=== PATIENT | female | born 1990 | race Caucasian/White ===

== ENCOUNTER 2016-10-26 15:17 | Inpatient (IN) | payer MEDICAID, OTHER ==
[~2016-10-26] VITALS: Ht 172.7 cm; Wt 88.0 kg
[2016-10-26] MEDS ORDERED: Benzocaine-Menthol Lozenge 2/Pkg PO PRN (23:50)
[2016-10-26] MEDS ORDERED: Magnesium Hydroxide 10 mL Oral Concentration PO PRN (23:50)
[2016-10-27] MEDS: Alum-Mag Hydrox-Simeth 30 mL Suspension PO PRN ×2 (00:54→13:29)
--- NOTE | 2016-10-27 00:57 | NUR ---
Admission Note Pt arrived to facility via ambulance from [facility] at 2230. Pt was detained on 72 hr hold for grave disability. Per ED report pt was seeking vol admission to in-patient psych facility r/t not feeling safe at home but was eventually detained at [facility] r/t paranoia, aggression and bizarre statements and behavior. Upon arrival to unit pt appears to have good hygiene, with appropriate dress. Pt is cooperative in signing all admission forms and nursing assessment. Pt is A&O to self and time but states she thinks she is in at "[facility]" . Pt is disorganized in thought process and speech and is very tangential. Pt stated reason for admission "I need a new start this is a new day and Im not talking about my past". Pt rated anxiety3/10, denied depression and SI and hallucinations but stated" I hear spirits and feel energy because Im very very in tune with my body". Pt statement regarding homicidal thoughts and actions" If Im in the world w/o supervision I could do evil things to hurt people". Pt stated long history of polysubstance abuse with heroine, meth and alcohol but stated she has been sober for a yr. Pt stated medical conditions:chronic pancreatitis, HTN. Noted DX of schizophrenia and depression. Pt was oriented to room and appears to be in a manic state AEB c/t walk up and down hallway stating"I don't sleep at night. Q15 min safety checks done per protocol, TM sleep, behavior safety
[2016-10-27] MEDS: OLANZapine Zydis ODT 5 mg Tablet PO PRN ×2 (03:15→22:29)
[2016-10-27] MEDS: LORazepam 1 mg Tablet PO PRN ×2 (03:30→15:30)
--- NOTE | 2016-10-27 04:17 | NUR ---
nursing, nights, 11-7 s- i need to walk off the nightmare. no i don't want anything. i need to remember my life. ok i'll take that. i don't want to sleep. this is gymnastic furniture. i am anxious. ok if that will help. o- has not appeared to sleep. active alternating between her room and the dinning room. danced on the furniture once. has received 100 mg of trazodone at 0050, 10 mg of zyprexa at 0320 and 1 mg of ativan at 0330. is currently socializing with another peer in the dinning room. assessed q 15 minutes. a- pleasantly manic, disorganized, poor tracking with loose associations and flight of ideas, medication moderately effective, responds well to staff reassurance and support, no apparent physical distress. p- monitor behavior/emotional state, quality, times and amount of sleep, use and effect of medication. yakov
--- NOTE | 2016-10-27 05:12 | NUR ---
Pt arrived to unit 2230. Signed all paperwork. Pt acting manic with rapid loss of focus and change of topic. Up in common area. Staff had to redirect multiple times for volume and also for using chairs in TV area appropriately. She stated that it is ok, this is gymnastic equipment. I can use it this way when staff redirected not to stand and jump around on chairs. Pt did not sleep at all. Pacing, running in halls and out on dining room. Pt observed every 15 minutes as ordered.
[2016-10-27 09:00] VITALS: BP 147/107; PULSE 95; RESP 17
[2016-10-27] MEDS: BusPIRone 15 mg Dividose Tablet PO SCH ×3 (09:17→20:19)
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
--- NOTE | 2016-10-27 14:31 | NUR ---
Nursing Note [id number] Behavior S/O: Pt's B/P high at 147/107. Dr. Miner informed. Pt out in milieu during the day watching TV. Pt has been pleasant & cooperative with peers & staff. Conversation tracking clear & organized. 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 She has lost her new job before . A: No psychotic sx noted. P: Provide supportive environment. Monitor medications & effects.
--- NOTE | 2016-10-27 18:46 | NUR ---
Observations [id number] Pt was asleep upon start of shift. Pt's mood throughout the day appeared manic at times, with fast speech and concern regarding what she should be doing while on the unit. Pt attended all meals, eating 100%. She used the phone to call friends, took a shower, and remained active throughout the day. Pt also participated in group. Pt has a very loud volume and appears to become anxious at times. Pt was observed every 15 minutes of shift as directed.
[2016-10-27] MEDS: OLANZapine Zydis ODT 5 mg Tablet PO SCH (20:21)
--- NOTE | 2016-10-27 22:30 | NUR ---
Nurses PRN Patient received scheduled HS medications at 2020 and began to escalate with as another female peer loss control on the unit. Patient was loud yelling and cursing at staff and was unable to calm self or follow staff directions. She stood on the dining table and refused to be redirected. PRN Zyprexa Zydis 10mg was offered and accepted. She was able to pace the halls with a new male admission until ready for sleep. Patient stated she felt that there was "a presence behind her and felt on "top of the world." material handler 2nd shift to assess response.
--- NOTE | 2016-10-28 03:45 | NUR ---
nursing, nights, 11-7 s/o- has appeared to sleep after 0100 during q 15 minute assessments. a- no apparent distress. p- monitor behavior/emotional state, quality, times and amount of sleep, use and effect of medication. yakov
--- NOTE | 2016-10-28 03:58 | NUR ---
Pt became very agitated and threw her apple at the end of chand wall making it splatter after yelling, cussing and storming off. Pt continued to be agitated and aggressive with staff yelling and slamming into nursing station door with fists to scare staff. Pt was also had to be reminded to that this unit did not allow physical interaction like cuddling. Finally was able to regain control and apologized noting she didn't understand why she threw a temper tantrum like a 7 year old. Asleep at 100. Pt observed every 15 minutes as ordered.
[2016-10-28] MEDS: BusPIRone 15 mg Dividose Tablet PO SCH ×3 (10:45→20:21)
--- NOTE | 2016-10-28 12:00 | PCM.PNPSY ---
Subjective Date of Service Oct 28, 2016 Subjective I spent 30 minutes both reviewing treatment plan and providing supportive/ educational psychotherapy. I spent more than 50% of the time counseling the patient. I reviewed the treatment plan with the patient and discussed options available including the potential risks, benefits and side effects. Mohit reports a marked improvement in thought organization and mood stability. Staff reports that she has been active and participating well in one -to-one unit and group activities. She slept 4.5 hours and denies suicidal ideation. Staff reports that she was agitated and required significant redirection last p.m. She denies medication side effects. Patient was able to identify her medications and what they were used to treat. She appeared to understand the need for medications by the questions she asked during our discussion. Current Medications Current Medications Al Hydrox/Mg Hydrox/Simethicone 30 ml Q6H PRN PO Last administered on 13:29; Admin Dose 30 ML; Start 10/26/16 at 23:50 Bupropion HCl 100 mg DAILY PO Last administered on 10/28/16 10:47; Admin Dose 100 MG; Start 10/28/16 at 08:30 Bupropion HCl 200 mg DAILY PO Last administered on 10/27/16 09:27; Admin Dose 100 MG; Start 10/27/16 at 08:30; Stop 10/27/16 at 11:18; Status DC Buspirone HCl 7.5 mg TID PO Last administered on 10/28/16 10:45; Admin Dose 7.5 MG; Start 10/27/16 at 08:30 Clonazepam 0.5 mg BID PO Last administered on 10/28/16 10:43; Admin Dose 0.5 MG ; Start 10/27/16 at 11:10 Gabapentin 300 mg TID PO Last administered on 10/28/16 10:44; Admin Dose 300 MG ; Start 10/27/16 at 08:30 Lorazepam 1 mg Q4H PRN PO Last administered on 10/27/16 15:30; Admin Dose 1 MG ; Start 10/26/16 at 23:50 Nicotine 1 patch DAILY TOPICAL Last administered on 10/28/16 10:48; Admin Dose 1 PATCH; Start 10/27/16 at 08:30 Nicotine Polacrilex 2 mg Q4H PRN BUCCAL Last administered on 10/28/16 11:16; Admin Dose 2 MG; Start 10/27/16 at 02:15 Olanzapine 10 mg DIRECTED PRN PO Last administered on 10/27/16 22:29; Admin Dose 10 MG; Start 10/26/16 at 23:50 Olanzapine 10 mg DAILY PO Last administered on 10/27/16 20:21; Admin Dose 10 MG ; Start 10/27/16 at 20:30 Trazodone HCl 100 mg HS PRN PO Last administered on 10/27/16 00:54; Admin Dose 100 MG; Start 10/26/16 at 23:50 Mental Status Exam Appearance: Neat/well groomed Attitude: Pleasant, Cooperative Behavior: No unusual behavior Affect: Well Modulated/Appropriate Mood: Euthymic Thought Process/Associations: Logical/Sequential, Goal Directed Speech Production: Normal Speech Rate: Normal Speech Articulation: Normal Thought Content: Appropriate Danger to Self/Suicidal Ideati: None Danger to Others: None Consciousness: Alert Orientation: Person, Place, Date, Situation Memory: Grossly Intact Estimate Intellectual Function: Above Average Basis for IQ estimate: Awareness current events, Word use/vocabulary, Educational history Attention/Concentration & Cogn: Grossly Intact Insight: Good Judgement: Limited Mental Health Plan The patient is a 26-year-old, single white female with three children who are currently with their biological father. She is on Social Security Disability for mental illness and has been on inpatient units in [place] multiple times, in [facility] for six weeks at 24. There are references to polysubstance abuse in her chart, as well as references to schizophrenia. Her presentation at this time seems more related to laura with psychosis than schizophrenia. While in [facility], she was quite hyperactive, agitated and aggressive. Required four-point restraints. Here, she is more labile with tangential thoughts and hyperreligious delusions. She is willing to take medications. She does want to be here even though she is on a 72-hour involuntary treatment hold for grave disability. Over the past 48 hours I have had a chance to spend a significant amount of time with Mohit. She cleared so rapidly I am inclined to believe that she is suffering more from substance-induced psychosis Rather than an underlying schizophrenic process. Patient likely ready for discharge in 48-72 hours. [place] AXIS I 1. Psychosis, unspecified. 2. Rule out substance-induced psychosis. 3. Rule out bipolar mood disorder with psychosis. 4. Rule out schizophrenia. AXIS II Deferred. AXIS III None. AXIS IV Moderate. AXIS V Current Global Assessment of Functioning equal to 40 Medications Treatments Patient is being provided with a high degree of safety through the structure and active adult engagement. We will focus on developing improved coping skills and identifying stressors that may have led to current episode. We will attempt to: Integrate into therapeutic groups, milieu and individual therapy. Maintain in a closely monitored and structured unit Provide low-stimulation environment Obtain collateral data to assist in treatment planning Assess degree of lability of affect and impulse control Complete safety plan Decrease frequency of relapse and need for re-hospitalization Denies thoughts of harm to self and/or others Establish a consistent sleep pattern Medication effective in stabilization of mood and/or thought process Reduce the risk of imminent harm to self and/or others by providing a safe environment Tolerates medication without side effects Patient will be on the following psychiatric medications: Zyprexa 10 mg at bedtime to target laura and psychosis Klonopin 0.5 mg twice a day to target symptoms of laura Gabapentin 300 3 times a day Education: Educate patient about recreational drug use as an etiology Educate about metabolic etiologies related to obesity Address patient's legal status Patient is on a 72 hour involuntary treatment hold that will Wednesday 11/01 at 2:30 AM. I am recommending the hold be dropped on Monday or Monday and will encourage the patient to sign in voluntary Javier Miner MD Oct 28, 2016 12:00
--- NOTE | 2016-10-28 16:00 | NUR ---
S/O Pt exhibits emotional lability, delusions of grandeur, and paranoia. Demeanor was pleasant in AM and became more aggressive and agitated as the day went on. Reports that she is going to be a guest star on a TV talk show and was angry that "no one believed [her]." Angers easily. States, "I'm feeling aggressive and I don't like it." A Pt continues to display s/s of laura/psychosis. P Continue with scheduled and PRN medications. Maintain calm milieu; encourage sleep; and discuss strategies to cope with anger.
[2016-10-28] MEDS: LORazepam 1 mg Tablet PO PRN ×2 (16:11→23:30)
[2016-10-28] MEDS: Alum-Mag Hydrox-Simeth 30 mL Suspension PO PRN (16:57)
[2016-10-28] MEDS: OLANZapine Zydis ODT 5 mg Tablet PO SCH (20:21)
[2016-10-28 21:47] VITALS: BP 152/113; PULSE 93; RESP 18
[2016-10-29] MEDS: OLANZapine Zydis ODT 5 mg Tablet PO PRN ×2 (02:21→15:01)
[2016-10-29] MEDS ORDERED: hydrOXYzine Pamoate 25 mg Capsule PO ONE (03:55)
--- NOTE | 2016-10-29 05:31 | NUR ---
Pt in fair mood this evening. Tried to be helpful to those who she thought may need assistance. Became increasingly agitated through night when unable to sleep. She noted that she has to be back in [place] by the 18th for a custody hearing. Pt observed every 15 minutes as ordered.
[2016-10-29] MEDS: Alum-Mag Hydrox-Simeth 30 mL Suspension PO PRN (05:51)
--- NOTE | 2016-10-29 05:57 | NUR ---
Nursing Note Noc Pt has been exhibiting manic behaviors through out the shift. Pt has only had 1.5 hr of sleep. Pt has spent the shift, pacing hallway, cleaning milieu, socializing loudly with peers. Pt took ativan and trazodone PRN to encourage sleep with no results noted. Pt requested "a horse tranquilizer" to help her sleep also stating' I sometimes take Seroquel or hydroxyzine. received a TO to give one time dose of each and went to administer it and Pt had finally fallen asleep. pt slept 1.5 hr and was back up at 0545. Pt is cooperative with staff with apparent audio hallucinations AEB Pt stating " Do you hear that music , sounds like scary music off a horror show". Q15 min safety checks done per protocol, [facility] sleep, behavior, safety
[2016-10-29] MEDS: BusPIRone 15 mg Dividose Tablet PO SCH ×3 (08:43→20:44)
[2016-10-29] MEDS: OLANZapine Zydis ODT 5 mg Tablet PO SCH (08:43)
--- NOTE | 2016-10-29 12:11 | PCM.PNPSY ---
Subjective Date of Service Oct 29, 2016 Subjective I spent 30 minutes both reviewing treatment plan and providing supportive/ educational psychotherapy. I spent more than 50% of the time counseling the patient. I reviewed the treatment plan with the patient and discussed options available including the potential risks, benefits and side effects. Mohit reports a difficulty with sleep and mood stability. Staff reports that she has been more cooperative but highly active in unit and group activities. She slept 2.5 hours. Staff reports that she was less agitated and did not require significant redirection last p.m.. She denies medication side effects. Patient was able to identify her medications and what they were used to treat. She appeared to understand the need for medications by the questions she asked during our discussion. Current Medications Current Medications Bupropion HCl 100 mg DAILY PO Last administered on 10/29/16 08:43; Admin Dose 100 MG; Start 10/28/16 at 08:30 Olanzapine 10 mg DAILY PO Last administered on 10/29/16 08:43; Admin Dose 10 MG ; Start 10/27/16 at 20:30 Mental Status Exam Appearance: Neat/well groomed Attitude: Pleasant, Cooperative Behavior: No unusual behavior Affect: Well Modulated/Appropriate Mood: Euthymic Thought Process/Associations: Logical/Sequential, Goal Directed Speech Production: Normal Speech Rate: Normal Speech Articulation: Normal Thought Content: Appropriate Danger to Self/Suicidal Ideati: None Danger to Others: None Consciousness: Alert Orientation: Person, Place, Date, Situation Memory: Grossly Intact Estimate Intellectual Function: Above Average Basis for IQ estimate: Awareness current events, Word use/vocabulary, Educational history Attention/Concentration & Cogn: Grossly Intact Insight: Good Judgement: Limited Mental Health Plan The patient is a 26-year-old, single white female with three children who are currently with their biological father. She is on Social Security Disability for mental illness and has been on inpatient units in [place] multiple times, in [facility] for six weeks at 25. There are references to polysubstance abuse in her chart, as well as references to schizophrenia. Her presentation at this time seems more related to laura with psychosis than schizophrenia. While in [facility], she was quite hyperactive, agitated and aggressive. Required four-point restraints. Here, she is more labile with tangential thoughts and hyperreligious delusions. She is willing to take medications. She does want to be here even though she is on a 72-hour involuntary treatment hold for grave disability. Over the past 72 hours I have had a chance to spend a significant amount of time with Mohit. She cleared so rapidly I was inclined to believe that she is suffering more from substance-induced psychosis. However given the course of events it is becoming quite clear that she has a combination of bipolar mood disorder with psychosis as well as an underlying substance abuse issue. [place] AXIS I 1. Bipolar mood disorder manic with psychotic features 2. Rule out substance-induced psychosis. 3. Rule out schizophrenia. AXIS II Deferred. AXIS III None. AXIS IV Moderate. AXIS V Current Global Assessment of Functioning equal to 35 Medications Treatments Patient is being provided with a high degree of safety through the structure and active adult engagement. We will focus on developing improved coping skills and identifying stressors that may have led to current episode. We will attempt to: Integrate into therapeutic groups, milieu and individual therapy. Maintain in a closely monitored and structured unit Provide low-stimulation environment Obtain collateral data to assist in treatment planning Assess degree of lability of affect and impulse control Establish a consistent sleep pattern Medication effective in stabilization of mood and/or thought process Tolerates medication without side effects Patient will be on the following psychiatric medications: Zyprexa 10 mg at bedtime to target laura and psychosis Increase Klonopin 0.5 mg twice a day to target symptoms of laura and 1 mg at bedtime to target insomnia and laura Gabapentin 300 3 times a day Education: Educate patient about recreational drug use as an etiology Educate about metabolic etiologies related to obesity Address patient's legal status Patient is on a 72 hour involuntary treatment hold that will Wednesday 11/01 at 2:30 AM. I am encouraging the patient to sign in voluntary if she needs more treatment at that time Javier Miner MD Oct 29, 2016 12:11
[2016-10-29 14:21] VITALS: BP 144/88; PULSE 67; RESP 16
--- NOTE | 2016-10-29 18:07 | NUR ---
Observations 0700 to 1900 Pt maintained behavioral control throughout the shift. Pt is manic, entitled, needy, grandiose. Pt is consistently making minor requests of staff, attempting to push boundaries. Pt believes that she is staff on unit "I've been working here for 10 years." Pt has no insight and attempts to intervene with other pts regularly, usually escalating. Pt needed to be reminded twice to not go into other pts rooms. Pt was very active on the unit throughout the day, seeking interaction with peers and staff. Pt ate 100% of breakfast and dinner and 50% of lunch. Pt was observed every 15 minutes as ordered.
--- NOTE | 2016-10-29 18:13 | NUR ---
Nursing Note [id number] S: "I feel realty sick, nauseated-its the meds I am on, they always do that to me". "I stopped taking my med in March, now I only use pot and alcohol, but alcohol only a little occasionally, because If I drink a lot, I black out and do stupid st". "I want my lab results from [place], I want to know what's wrong with me, do I have cancer, AIDS, nymphomania, acidosis"? "I don't normally cry, because it is a waste of oxygen and hydrogen and whatever"? "I discovered the cure for cancer and AIDS-you don't think about it and you pray". O: Patient restless, reporting feeling sick and nauseated. Participating in activities. Visible on unit. Reporting feeling tired today (only 2.5 hrs sleep last night). Requesting something to "perk me up, not coffee-3 cups haven't worked". Patient reporting she does not feel she needs to sleep-"my brain doesn't need it". A: Patient labile at times, appears anxious, disorganized. P: Monitor for safety and response to treatment. Follow plan of care. Addendum: 10/29/16 at 1815 by PHANI WONG RN PRNs Mylanta 20 ml for dyspepsia. Zyprexa 10 mg po @ 1500 for psychotic thoughts.
[2016-10-29] MEDS: LORazepam 1 mg Tablet PO PRN (22:27)
--- NOTE | 2016-10-30 04:06 | NUR ---
Nursing Noc "I'm a volunteer patient and Im ready to go now." Explained to patient her detained status and noted very poor impulse control..."There is nothing wrong with me and I will kill everybody in this [id number]$ place if you don't let me out of here now. Pt then noted to stomp off to her room. Pt then agreeded to take previously offered Ativan. Pt noted to sleep for couple of hours then up to DR requesting a hot meal. Pt noted on evening shift to report she knows the cure for CA and Aids.."thinking positive." Continue to observe for safety, labile affect, behavior, emotional state, and sleep times. CP, Q15 minute safety checks.
[2016-10-30] MEDS: Alum-Mag Hydrox-Simeth 30 mL Suspension PO PRN (04:44)
[2016-10-30] MEDS: LORazepam 1 mg Tablet PO PRN ×3 (05:51→22:38)
[2016-10-30] MEDS: BusPIRone 15 mg Dividose Tablet PO SCH ×3 (08:07→19:41)
[2016-10-30] MEDS: OLANZapine Zydis ODT 5 mg Tablet PO SCH (08:07)
[2016-10-30 09:00] VITALS: BP 136/89; PULSE 92; RESP 16
--- NOTE | 2016-10-30 12:12 | PCM.PNPSY ---
Subjective Date of Service Oct 30, 2016 Subjective I spent 30 minutes both reviewing treatment plan and providing supportive/ educational psychotherapy. I spent more than 50% of the time counseling the patient. Mohit reports improved sleep and mood stability. Staff reports that she has been more cooperative but highly active in unit and group activities. She slept 4.25 hours. Staff reports that she was less agitated again during the a.m. but continues to require significant redirection in the p.m. staff reports client stating "let me out or I will kill myself" "let me out or I will kill everyone in here". "I need labs to check to see if I am a nymphomaniac". She denies medication side effects. Patient was able to identify her medications and what they were used to treat. She appeared to understand the need for medications by the questions she asked during our discussion. Mental Status Exam Appearance: Neat/well groomed Attitude: Pleasant, Cooperative Behavior: No unusual behavior Affect: Well Modulated/Appropriate Mood: Euthymic Thought Process/Associations: Logical/Sequential, Goal Directed Speech Production: Normal Speech Rate: Normal Speech Articulation: Normal Thought Content: Appropriate Danger to Self/Suicidal Ideati: None Danger to Others: None Consciousness: Alert Orientation: Person, Place, Date, Situation Memory: Grossly Intact Estimate Intellectual Function: Above Average Basis for IQ estimate: Awareness current events, Word use/vocabulary, Educational history Attention/Concentration & Cogn: Grossly Intact Insight: Good Judgement: Limited Mental Health Plan The patient is a 26-year-old, single white female with three children who are currently with their biological father. She is on Social Security Disability for mental illness and has been on inpatient units in [place] multiple times, in [facility] for six weeks at 24. There are references to polysubstance abuse in her chart, as well as references to schizophrenia. Her presentation at this time seems more related to laura with psychosis than schizophrenia. While in [facility], she was quite hyperactive, agitated and aggressive. Required four-point restraints. Here, she is more labile with tangential thoughts and hyperreligious delusions. She is willing to take medications. She does want to be here even though she is on a 72-hour involuntary treatment hold for grave disability. Over the past 72 hours I have had a chance to spend a significant amount of time with Mohit. She cleared so rapidly I was inclined to believe that she is suffering more from substance-induced psychosis. However given the course of events it is becoming quite clear that she has a combination of bipolar mood disorder with psychosis as well as an underlying substance abuse issue. She is making slow but steady progress. [place] AXIS I 1. Bipolar mood disorder manic with psychotic features 2. Rule out substance-induced psychosis. 3. Rule out schizophrenia. AXIS II Deferred. AXIS III None. AXIS IV Moderate. AXIS V Current Global Assessment of Functioning equal to 35 Medications Treatments Patient is being provided with a high degree of safety through the structure and active adult engagement. We will focus on developing improved coping skills and identifying stressors that may have led to current episode. We will attempt to: Integrate into therapeutic groups, milieu and individual therapy. Maintain in a closely monitored and structured unit Provide low-stimulation environment Obtain collateral data to assist in treatment planning Assess degree of lability of affect and impulse control Establish a consistent sleep pattern Medication effective in stabilization of mood and/or thought process Tolerates medication without side effects Patient will be on the following psychiatric medications: Zyprexa 10 mg at bedtime to target laura and psychosis Increase Klonopin 0.5 mg twice a day to target symptoms of laura and 1 mg at bedtime to target insomnia and laura Gabapentin 300 3 times a day Education: Educate patient about recreational drug use as an etiology Educate about metabolic etiologies related to obesity Address patient's legal status Patient is on a 72 hour involuntary treatment hold that will Wednesday 11/01 at 2:30 AM. I am encouraging the patient to sign in voluntary if she needs more treatment at that time Javier Miner MD Oct 30, 2016 12:12
--- NOTE | 2016-10-30 13:46 | NUR ---
DAYS 7-7 S/O-Patient has been cooperative and compliant with care. Doing crafts, interacting with patients and staff. Verbalizes will to leave and concerns for family issues. A- Nurse listen to concerns, provide diversional activities, and medication as needed (none so far this shift). P- Court 11/01, 72hr LARA. 11/02 court in [place] (?) for children.
[2016-10-30] MEDS: OLANZapine Zydis ODT 5 mg Tablet PO PRN (14:19)
--- NOTE | 2016-10-30 15:42 | NUR ---
Senior Training And Development Rep./ c.m. S.:"I'm up and down today... very frustrated. I don't need to be here. I have to be in [place] on . This is my last custody court. I can't miss it! I have all my support over there. I have nobody here." O.: met with pt. to discuss her progress and to complete Treatment plan and goals. Pt. slept only 4.2 hrs last night but she said that it was "normal" for her. "I don't need to sleep more. This is how much I sleep at home." She denied SI/HI, denied AH but said that she was "seeing my cat everywhere." She also said that she "could feel other people feelings and thoughts just by touching them. I can also predict a future and can communicate with TV." She denied depression - "I'm just sad and afraid. I'm afraid to miss my court on . I'm afraid for my cat. I hope he will survive. I don't need medications because I'm not crazy." She said that she felt anxious on and off but she would like to cope with it by "doing something or talking to somebody. I don't need a pill." Pt. spent a lot of time in the public area doing crafts with selected peers. A.: pt. is cooperative, pleasant, social with peers. She is confused, paranoid, delusional and internally preoccupied. P.: monitor behavior, encourage pt. to take meds, provide safety in the unit; follow care plan.
--- NOTE | 2016-10-30 18:15 | NUR ---
Observations 0700 to 1900 Pt affect and mood was irritable, labile, gamey, manipulative and preoccupied. Pt speech and eye contact was good. Pt attended group and unit activities. Pt did some arts and crafts. On several occasions pt tries to boss peers around and rudely tell peers and staff what to do. Pt was social with staff and peers when approached. Pt played wii games with peers. Pt attended meals in [employer] and ate 100% of all meals. Pt ate snacks as well. Pt maintained behavior throughout the shift. Pt needs staff redirection at times. Pt was observed every 15 minutes throughout the shift as ordered.
[2016-10-31] MEDS: LORazepam 1 mg Tablet PO PRN ×2 (04:12→21:27)
--- NOTE | 2016-10-31 04:42 | NUR ---
Observations from [id number] Pts behaviors is similar to previous shifts but pt has been more agreeable this evening. She spent the evening with peers and seemed to get along well with everyone. Pt appeared asleep at 0130 and woke up a 0315. When pt awoke she was very disoriented and made very bizarre statements "people keep telling me I'm gonna be on [employer] [[employer]] but they don't need to tell me that, I know I'm gonna be on it soon" and requests her treatment goals be faxed to her old employer so she can get her job back. Pt has been observed every 15 minutes as directed.
[2016-10-31] MEDS: Alum-Mag Hydrox-Simeth 30 mL Suspension PO PRN ×2 (05:24→17:26)
--- NOTE | 2016-10-31 05:46 | NUR ---
Nursing 7p-7a Pt spent the evening out in the milieu participating in evening activities and socializing with her peers. Her statements can come across as grandiose and expansive at times, such as tonight she was stating "I am so smart. I know so much!" She also expressed to staff that she did not like the effects of her Wellbutrin and thinks that she would do better on Adderall & Ritalin. She is eager to discharge and get to her CPS court hearing on 11-02-16. Pt presents as less agitated with increasing cooperation, however she does show lack of insight into her current illness and need for medication. Sleep has remained disrupted sleeping from 0130- 0315, 0600 to current time. Total sleep just over 2 hours.
[2016-10-31] MEDS: OLANZapine Zydis ODT 5 mg Tablet PO SCH (09:24)
[2016-10-31] MEDS: BusPIRone 15 mg Dividose Tablet PO SCH ×3 (09:24→21:25)
[2016-10-31 10:00] VITALS: BP 133/96; PULSE 83; RESP 16
[2016-10-31 10:13] VITALS: BP 133/96; PULSE 83
[2016-10-31] MEDS: OLANZapine Zydis ODT 5 mg Tablet PO PRN ×2 (13:50→22:00)
--- NOTE | 2016-10-31 15:22 | NUR ---
Mobile Marketing Specialist./ c.m. S.:"I'm wonderful! I woke up on a right side of the bed." O.: met with pt. and MD together to discuss pt.'s progress. She didn't sleep well last night but she said that it was very typical for her to have very little sleep. She described her mood as "wonderful" but she said that she felt "sicker and sicker every day without my kids." She denied SI/HI, denied AH/VH today, denied depression or anxiety. She has a bench warrant in [place] and she also has a final hearing for custody of her children on in [place]. She is connected with services at [facility] in [place] ([phone]). She didn't have anybody to give her a ride home. She agreed to go by a [employer] bus or a train. She was a little nervous about a bus because she "never rode a bus before." She completed Safety plan. A.: pt. is cooperative, social with peers, anxious about her discharge tomorrow morning. P.: monitor behavior, follow care plan.
--- NOTE | 2016-10-31 17:05 | NUR ---
Nursing: Day shift: 699 to 1899 S: "i WILL leave today!!. I WILL not stay here tonight! I can't! I can't be here and see people falling. We are just not being cared for. All you do is offer some sort of pill!". O: Mohit was out on the open during the morning interacting with peers. After meeting with and family service caseworker, she began making phone calls about leaving. Tried to persuade a friend to come to pick her up. No success. She then called police. Had a tearful outburst at 1325 when she insisted on leaving. Was offered PrN ativan and/or Zydis. Accepted Zydis 10 mg at 1400 and calmed by 1500. Also became more cooperative when junior technical writer told her arrangements were being made for her to go by train to [place]. Slept in late afternoon. A: Ready/eager for discharge. Not a harm to self. Goal directed to get out by Nov 02. Responds to prn med. for agitation. P: Continue to support toward discharge tomorrow. Addendum: 10/31/16 at 1744 by DON PEREZ RN Amended: Links added.
--- NOTE | 2016-10-31 18:26 | NUR ---
Observations [id number] Pt was asleep much of the morning, awaking in the late morning for breakfast. Pt attended groups and appeared to be very anxious regarding leaving, at one point stating "I have things to do, like keep custody of my son....I need to get out of here!" Pt went outside on the patio area where she began stacking chairs, and later a peer informed this keno writer/runner that pt had made a comment about trying to escape. Pt appeared to calm down later and watched a few movies and sang. Pt took a nap in the late afternoon. She ate 100% of meals, and was observed every 15 minutes of shift as directed.
--- NOTE | 2016-10-31 18:54 | PCM.PNPSY ---
Subjective Date of Service Oct 31, 2016 Subjective The patient was singing when we entered into the piano room and she stated that she was "impersonating Sen [the rock group]". She stated that she was feeling "fabulous, wonderful, woke up on the right side of the bed. I want to provide for my children and my family and go to Alcoholics Anonymous and follow up with [facility]." The patient is concerned about a pending court date on the regarding termination of custody. She also reports that she has an open warrant which she would like to clear. The patient denies side effects and is agreeable to continue on medications. Sleep: 5.25 hours Appetite: Somewhat decreased with smaller portions Suicidal and homicidal ideation: Denies Auditory hallucinations: Denies Visual hallucinations: Reports that she saw a "black cat jump off the piano" yesterday. None so far today. Other Psychotic Symptoms: Some thought disorganization Anxiety: 0/10 Depression: "Vague"/10 Mental Status Exam Appearance: Neat/well groomed Attitude: Pleasant, Cooperative Behavior: No unusual behavior Affect: Well Modulated/Appropriate Mood: Expansive Thought Process/Associations: Logical/Sequential, Goal Directed Speech Production: Normal Speech Rate: Normal Speech Articulation: Normal Thought Content: Appropriate Danger to Self/Suicidal Ideati: None Danger to Others: None Hallucinations: Auditory (Denies), Visual (Endorses) Consciousness: Alert Orientation: Person, Place, Date, Situation Memory: Grossly Intact Estimate Intellectual Function: Average Basis for IQ estimate: Awareness current events, Word use/vocabulary, Educational history Attention/Concentration & Cogn: Grossly Intact Insight: Limited Judgement: Limited Mental Health Plan The patient is a 26-year-old, single white female with three children who are currently with their biological father. She is on Social Security Disability for mental illness and has been on inpatient units in [place] multiple times, in [facility] for six weeks at 24. There are references to polysubstance abuse in her chart, as well as references to schizophrenia. Her presentation at this time seems more related to laura with psychosis than schizophrenia. While in [facility], she was quite hyperactive , agitated and aggressive. Required four-point restraints. Since admission, the patient has been more labile with circumstantial and tangential thoughts with anabaptist delusions. She has been taking medications as prescribed. Her current 72 hour hold will early this morning and due to a error and timing, paperwork for the 14 day order was not filed in time. She is not currently expressing suicidal or homicidal thoughts and appears to have a plan to meet her basic needs. As such she does not appear to meet criteria for further involuntary inpatient hospitalization and is requesting discharge at the termination of her hold. [place] AXIS I 1. Bipolar mood disorder manic with psychotic features 2. Rule out substance-induced psychosis. 3. Rule out schizophrenia. AXIS II Deferred. AXIS III None. AXIS IV Moderate. AXIS V Current Global Assessment of Functioning equal to 35 Medications Gabapentin 300 mg 3 times a day Buspirone 7.5 mg 3 times a day Olanzapine 10 mg daily Clonazepam 0.5 mg twice daily Treatments 1. The patient is encouraged to participate with group and milieu therapy. 2. The patient is encouraged to continue medications as prescribed. 3. The patient will meet with the treatment team on a daily basis to assess symptoms, side effects, and response to treatment. 4. Patient is on a 72 hour involuntary treatment hold that will Wednesday 11/01 at 2:30 a.m. and was encouraged to continue hospitalization on a voluntary basis but is currently declining. Brooks Piper MD Oct 31, 2016 18:54
--- NOTE | 2016-11-01 01:13 | NUR ---
Observations 1900 to 0700 Pt was all over the place. Pt had a hard time following the guidelines of the unit. Pt didn't understand that just because she is to be D/C'd tomorrow that she has to continue to follow the guidelines of the floor and the staff sets. Pt wanted to leave multiple times and wouldn't give up on having her cell phone. Pt called 911 top report I was holding her against her will. I unplugged phone and she had her phone privileges taken away. Pt continue to escalate for awhile yelling nd swearing at me through the window and flipping me off as she was sitting by the TV. Pt was given some markers to work on her art and she eventually calmed down. Pt first appeared asleep at 00:30 and was observed every 15 minutes through the night as directed.
--- NOTE | 2016-11-01 06:53 | NUR ---
Nursing Noc Pt spent the evening out in the main milieu. She had one outburst during the evening and called 911. She was redirected and given prn medication with good results. She calmed and continues anxious to discharge today. Delayed onset of sleep . She slept from 6770-9726, 0515 to current time. Total sleep over 5 hours.
[2016-11-01] MEDS: BusPIRone 15 mg Dividose Tablet PO SCH ×2 (08:27→14:39)
--- NOTE | 2016-11-01 08:31 | PCM.DIMED ---
Discharge Instructions Date of Service Nov 01, 2016 Dates of Hospitalization Oct 26, 2016 at 22:40 Discharge Diagnosis Discharge Diagnosis AXIS I 1. Bipolar mood disorder manic with psychotic features 2. Rule out substance-induced psychosis. 3. Rule out schizophrenia. AXIS II Deferred. AXIS III None. AXIS IV Moderate. AXIS V Current Global Assessment of Functioning equal to 40 Diet No restrictions Activity No restrictions Patient Instructions Should you have any thoughts of harming yourself or others, please call the crisis line, your provider, 911, or go to the nearest Emergency Department. Do not change or discontinue your medications without discussing with your provider. You have been given a prescription for 7 days supply of your medication Follow-up plan [facility] Walk-in 08:00am-02:00pm [address] [place] [id number] Fax Brooks Piper MD Nov 01, 2016 08:31
[2016-11-01] MEDS ORDERED: BUSP15TA3 PO (08:44)
[2016-11-01] MEDS ORDERED: GABA300C PO (08:44)
[2016-11-01] MEDS ORDERED: Bupropion Hcl PO (08:44)
[2016-11-01] MEDS ORDERED: TRAZ-118 PO (08:44)
[2016-11-01] MEDS ORDERED: OLAN10TA32 PO (08:44)
[2016-11-01] MEDS ORDERED: KLO5T PO (08:44)
[2016-11-01] MEDS: OLANZapine Zydis ODT 5 mg Tablet PO SCH (08:50)
--- NOTE | 2016-11-01 10:14 | NUR ---
Nursing: Home Meds. There is a home med bag receipt # [id number] dated 10/27/16 for pt Mohit Haasley, [id number] prepared by Keaton Lemon. Pharmacy is unable to locate any medications in pharmacy at this time.
--- NOTE | 2016-11-01 10:30 | NUR ---
Stage Producer./ c.m. S.:"I'm fantastic!" O.: met with pt. and MD together to discuss pt.'s discharge and transportation plan. She "slept great last night." She denied SI/HI, denied AH/VH, denied depression or anxiety. She agreed to go back home by a [employer] bus because she was determined to leave today. Plastics Production Machine Operator called [facility] in [place] and found out that pt. wasn't active in their service. Pt. needs to go to [facility] any day from Monday to Monday from 8:00 am till 14:00 for intake appt for mental health services at the main building on [address] [place] [address] in [place] ([phone]). Pt. agreed to do that. She wasn't sure if she needed to take her meds but she wanted to have them with her in case if she needed them. She was out in the Dining room talking to peers after breakfast. A.: pt. is cooperative, pleasant, social with peers, wants to go home. P.: monitor behavior, follow care plan.
[2016-11-01] MEDS: LORazepam 1 mg Tablet PO PRN (11:19)
[2016-11-01] MEDS: OLANZapine Zydis ODT 5 mg Tablet PO PRN (14:53)
--- NOTE | 2016-11-01 17:25 | PCM.DC.MED ---
Discharge Summary Date of Service Nov 01, 2016 Dates of Hospitalization Date of Hospital Admission Oct 26, 2016 at 22:40 Date of Discharge: Nov 01, 2016 Providers: Admitting Physician: Javier Miner MD Primary Care Physician: Nopirasema Attending Physician: Javier Miner MD Diagnosis at Time of Discharge Diagnosis at Time of Discharge AXIS I 1. Bipolar mood disorder manic with psychotic features 2. Rule out substance-induced psychosis. 3. Rule out schizophrenia. AXIS II Deferred. AXIS III None. AXIS IV Moderate. AXIS V Current Global Assessment of Functioning equal to [address] Crabtree initial intake from 10/27/2016: IDENTIFICATION: The patient is a 26-year-old, single white female, currently living alone in an apartment with her cat. She has three children that live with her biological father, ages 3, 7 and 9. She is on Social Security Disability and lives in the [facility]. REASON FOR ADMISSION: Client was detained at [facility] in [place] on a 72-hour involuntary treatment hold for laura and psychosis. HISTORY OF PRESENT ILLNESS: The patient presents today for evaluation and treatment of laura and psychosis. I met with her for a 60-minute evaluation, reviewed course and records kept by [facility] in [place] and [facility]. Her main issue at this time is both laura and psychosis. Co-occurring issues are related to interpersonal relationship conflicts and the stress of not being able to be with her children. The condition has been present over the past 10 years, and she has been admitted to [facility] on multiple different occasions to the psychiatric mcknight. She also states she has spent time in [facility] for approximately six weeks. At current, her symptoms are of severe intensity manifesting with symptoms of ideas of reference, believing that she can hear everyone's thoughts, responding to internal stimuli, tangential and loose associations. She also has multiple symptoms of laura including marked distractibility, racing thoughts, grandiose delusions about herself and her abilities, high increase in activity, decreased need for sleep, and an increase of seeking out pleasurable activities. All of it is made worse by recreational drugs. She has a history of IV heroin and meth. She has been off of heroin and meth since September 2015, per her report but instead is using high concentrations of THC throughout the day. It is difficult to say what other stressors may be making this worse, as client is a very poor historian. She is currently presenting with signs of severe emotional liability, marked cognitive deficits and difficulty with impulse control, judgment and reality testing. Hospital Course The patient was admitted to the unit and started on olanzapine 10 mg at bedtime although she was also using a daily dose for severe agitation. She also received clonazepam 0.5 mg twice daily and buspirone 7.5 mg 3 times a day. At the time of discharge, buspirone was increased and timing was consolidated to 15 mg twice daily. Clonazepam was decreased to 0.5 mg daily for 7 days. The patients Wellbutrin was decreased to 100 mg daily to reduce agitation. The patient responded fairly quickly to medications with a decrease in agitation although she still continued to be somewhat euphoric with limited insight. Despite clearing fairly rapidly, the patient continued to have affect instability and mood lability. Although not entirely stable, the patient was requesting discharge and paperwork had not been filed and the proper timeframe the previous week and so a 14 day order could not be obtained. She was denying any danger to self or others. She had housing by her report and was going to take care of her legal issues upon her return to [place]. She would have outpatient follow-up with [facility] but would have to present on a walk-in basis. She agreed to take medications as prescribed but may stop Wellbutrin if her agitation continues. At the time of discharge, the patient was reporting her mood as fantastic." Sleep was reported as "really, really, good" and appetite was reported as dwindled down but coming back." Her anxiety was reported as 0/10 and depression as 0/10. She denied auditory or visual hallucinations and any thought, intent or plan of hurting herself or others. She did endorse some racing thoughts and reported that they were all positive whereas when she came in they were a mixture of mostly negative and some positive. Exam Vital Signs (Last) Date Time Temp Pulse Resp B/P Pulse Ox O2 Delivery O2 Flow Rate FiO2 10/31/16 10:13 36.8 83 133/96 10/31/16 10:00 16 Exam Mental Status Exam Appearance: Neat/well groomed Attitude: Pleasant, Cooperative Behavior: No unusual behavior Affect: Well Modulated/Appropriate Mood: Anxious to discharge Thought Process/Associations: Logical/Sequential, Goal Directed Speech Production: Normal Speech Rate: Normal Speech Articulation: Normal Thought Content: Appropriate Danger to Self/Suicidal Ideation: None Danger to Others: None Hallucinations: Auditory (Denies), Visual (Denies) Consciousness: Alert Orientation: Person, Place, Date, Situation Memory: Grossly Intact Estimate Intellectual Function: Average Basis for IQ estimate: Awareness current events, Word use/vocabulary, Educational history Attention/Concentration & Cognition: Grossly Intact Insight: Limited Judgement: Limited Physical Examination AIMS Score: 0; No dystonia or cogwheeling Discharge Medications Discharge Medications ([Bupropion Hcl]) 100 MG TABLET 100 MG PO DAILY Prescribed by: VANDANA PIPER MD Buspirone (Buspirone) 15 Mg Tablet 15 MG PO BID Prescribed by: VANDANA PIPER MD Clonazepam (Clonazepam) 0.5 Mg Tablet 0.5 MG PO DAILY Prescribed by: VANDANA PIPER MD Gabapentin (Neurontin) 300 Mg Capsule 300 MG PO TID Prescribed by: VANDANA PIPER MD Olanzapine ODT (Olanzapine ODT) 10 Mg Tablet 10 MG PO BID Prescribed by: VANDANA PIPER MD As needed Trazodone (Trazodone) 100 Mg Tablet 100 MG PO HS PRN PRN Insomnia Prescribed by: VANDANA PIPER MD Followup Plan Disposition: The patient's involuntary half-way ended today and she is declining inpatient hospitalization. There were no grounds for further half-way and so the patient will return to home via [facility]. The patient verbally consented to take the prescribed medications. The patient verbally expressed understanding of the risks, benefits, alternative treatment options, and risks of not taking the prescribed medication. The patient verbally expressed understanding of the medication instructions, that she will adhere to the prescribed medication, and that she will go to all aftercare scheduled appointments. Follow-up plan [facility] Walk-in 08:00am-04:00pm [address] [place] [phone] Fax Discharge Diet: No restrictions Discharge Activity: No restrictions Patient Instructions Should you have any thoughts of harming yourself or others, please call the crisis line, your provider, 911, or go to the nearest Emergency Department. Do not change or discontinue your medications without discussing with your provider. You have been given a prescription for 7 days supply of your medication Vandana Piper MD Nov 01, 2016 17:25
== END 2016-11-01 15:50 | disposition home or self-care (01) | DRG 753 ==
LOC: MHC 22:40
PROVIDERS: ADMIT Psychiatry & Neurology Psychiatry; ATTEND Psychiatry & Neurology Psychiatry
DX: F31.2 Bipolar disorder, current episode manic severe with psychotic features (principal)